=== PATIENT | male | born 2000 | race Caucasian/White ===

== ENCOUNTER → 2020-08-06 | Outpatient (CLI) | payer OTHER | LOC: LAB 14:03 | PROVIDERS: ATTEND Surgery | DX: Z01.812 Encounter for preprocedural laboratory examination (principal); Z20.828 Contact with and (suspected) exposure to other viral communicable diseases | CPT/HCPCS: U0003 ==

== ENCOUNTER → 2020-08-11 | Day surgery (SDC) | payer OTHER ==
[~2020-08-11] VITALS: Ht 182.9 cm; Wt 67.0 kg
[~2020-08-11] MED LIST: ACETAMINOPHEN 500 MG TABLET PO PRN; BACITRACIN TOPICAL OINT PACKET. TP ONE; BUPIVACAINE-EPI 0.5%-1:200000 MPF 30 ML VIAL. INJ ONE; DEXAMETHASONE SOD PHOS 4 MG/ML VIAL ONE; HYDR-3164 PO; HYDROmorphone 2 MG/ML VIAL IV PRN; IV RINGERS,LACTATED 1000ML 1,000 ML IV SCH; LIDOCAINE 1% PF 2 ML VIAL. ID PRN; LIDOCAINE 2% PF 5 ML VIAL. ONE; MIDAZOLAM HCL/PF 2 MG/2 ML VIAL. ONE; MORPHINE SULFATE 2 MG/ML VIAL. IV PRN; NEOMY/BACITR/POLYMYXIN OINT PACKET. TP ONE; ONDANSETRON PF 4 MG/2 ML VIAL. IV PRN; ONDANSETRON PF 4 MG/2 ML VIAL. ONE; PROCHLORPERAZINE 10 MG/2 ML VIAL. IV PRN; PROPOFOL 10 MG/ML (20ML) VIAL. IV ONE; ceFAZolin SODIUM IV Push 1 GM VIAL. IVP PRN; fentaNYL PF VIAL 100 MCG/2 ML VIAL IV PRN; fentaNYL PF VIAL 100 MCG/2 ML VIAL ONE
--- NOTE | 2020-08-11 11:16 | PDOC4 ---
Operative Note Operative Note Date: 1110 at 1114 Preoperative diagnosis: Anal fistula Postoperative diagnosis: Same Procedure: Anal fistulectomy Surgeon: Feroz Specimen: None Dictation: Patient is 20-year-old male with a chronic gluteal wound. Procedure of anal fistulectomy was explained to the patient detail risk benefits were also discussed including bleeding infection alternatives to this procedure also discussed with the patient who seemed to understand and gave both verbal and written consent to have the procedure performed. Patient was taken to the operating room placed in the supine position general anesthesia was initiated once patient was sleeping intubated he was placed in lithotomy positioning and his perineum was prepped and draped usual sterile fashion using Betadine scrub and solution. The chronic wound opening was on the left buttock cheek a probe was used to probe this and a tract was found to the anus this tract was then opened with 15 blade scalpel the tract was curetted bleeding was controlled with electrocautery the wound was then dressed with triple antibiotic ointment 4 x 4's and mesh underwear. Patient was placed back in supine positioning awakened and extubated operating room taken to recovery in stable condition all sponge instrument needle counts listed as correct estimated blood loss 5 mL. ARIEL LIMON MD Aug 11, 2020 11:16
--- NOTE | 2020-08-11 11:18 | DISCH ---
DISCHARGE INSTRUCTIONS Condition on Discharge Condition on Discharge: Stable Activity After Discharge Activity Instructions for Disc: No restrictions Other activity instructions: May shower in 24 hours Diet after Discharge Diet after Discharge: Regular Wound Incision Care Other wound/incision instructi: Change dressing daily Contacting the DRAlma after DC Call your doctor for: If your condition worsens Follow-Up Follow up with: Dr. Limon in 2 weeks ARIEL LIMON MD Aug 11, 2020 11:18
[2020-08-11 12:13] VITALS: BP 119/75
== END | disposition home or self-care (01) ==
LOC: SURG 09:34
PROVIDERS: ATTEND Surgery
DX: K60.3 Anal fistula (principal); L02.31 Cutaneous abscess of buttock; K21.9 Gastro-esophageal reflux disease without esophagitis; F41.9 Anxiety disorder, unspecified; Z79.899 Other long term (current) drug therapy; Z98.890 Other specified postprocedural states; Z87.891 Personal history of nicotine dependence; Z72.89 Other problems related to lifestyle
CPT/HCPCS: 46270; A4461; A7015; J0690; J1100; J2250; J2405; J2704; J3010